=== PATIENT | female | born 1960 | race Caucasian/White ===

== ENCOUNTER 2022-03-03 14:12 | Inpatient (IN) | payer MEDICARE, MEDICAID ==
[~2022-03-03] VITALS: Ht 160 cm; Wt 61.7 kg
[2022-03-03 15:58] LABS: BASOPHILS % 0.1 % (0.0-2.0); HEMATOCRIT. 30.6 % (36.0-48.0); HEMOGLOBIN. 10.8 g/dL (12.0-16.0); LYMPHOCYTES % 8.6 % (20.0-50.0); MEAN CORPUSCULAR HEMOGLOBIN 31.9 pg (28.0-32.0); MEAN CORPUSCULAR VOLUME 90.7 fL (81.0-99.0); MONOCYTES % 6.1 % (2.0-8.0); NEUTROPHILS % 85.2 % (40.0-76.0); PLATELET 65 x1000/uL (130-400); RED BLOOD CELL COUNT 3.37 mill/uL (4.2-5.4); RED CELL DISTRIBUTION WIDTH 14.7 % (11.6-14.6)
[2022-03-03 16:00] LABS: CHLORIDE 96 mEq/L (98-107)
[2022-03-03 16:08] LABS: BETA HYDROXYBUTYRATE 0.1 mMol/L (0.0-0.3)
[2022-03-03] MEDS ORDERED: SODIUM CHLORIDE 0.9% 1,000 ML IV ONE ×2 (17:15)
[2022-03-03] MEDS ORDERED: POTASSIUM CHLORIDE 20MEQ TABLET SR PO ONE (17:15)
[2022-03-04] MEDS ORDERED: MAGNESIUM/ALUMINUM HYDROXIDE/SIMETHICONE 30ML UDC PO PRN (06:45)
[2022-03-04] MEDS ORDERED: HYDROCODONE/ACETAMINOPHEN 5/325MG TABLET PO PRN (06:45)
[2022-03-04] MEDS ORDERED: ONDANSETRON HCL 4MG/2ML INJ IV PRN (06:45)
[2022-03-04] MEDS ORDERED: GUAIFENESIN 200MG/10ML SUGAR FREE UDC PO PRN (06:45)
[2022-03-04] MEDS ORDERED: DOCUSATE SODIUM 100MG CAPSULE PO PRN (06:45)
[2022-03-04] MEDS ORDERED: LORAZEPAM 0.5MG TABLET PO PRN (06:45)
[2022-03-04] MEDS ORDERED: ACETAMINOPHEN 325MG TABLET PO PRN ×2 (06:45)
[2022-03-04] MEDS ORDERED: CLONIDINE 0.1MG TABLET PO PRN (06:45)
[2022-03-04] MEDS ORDERED: ACETAMINOPHEN 650MG SUPP PR PRN ×2 (06:45)
[2022-03-04] MEDS ORDERED: IPRATROPIUM/ALBUTEROL 0.5-3(2.5)MG/3ML NEB HHN PRN (06:45)
[2022-03-04] MEDS ORDERED: NALOXONE HCL 0.4MG/ML VIAL IV PRN (07:30)
[2022-03-04 08:35] LABS: BG BASE EXCESS -3.5 mmol/L (-2.0-2.0); BG CARBOXYHEMOGLOBIN 0.5 % (0.5-1.5); BG DEOXYHEMOGLOBIN 3.8 % (0.0-5.0); BG HCO3 ACT 18.2 mmol/L (22.0-26.0); BG METHEMOGLOBIN 0.3 % (0.0-1.5); BG OXYGEN SATURATION 96.2 % (92.0-98.5); BG OXYHEMOGLOBIN 95.4 % (94.0-97.0); BG PCO2 23.8 mmHg (35.0-45.0); BG PH 7.501 (7.350-7.450); BG PO2 76.4 mmHg (75.0-100.0); BG SAMPLE SITE RIGHT BRACHIAL; BG TOTAL HEMOGLOBIN 11.6 g/dL (12.0-18.0); BG VENT MODE ROOM AIR
[2022-03-04] MEDS ORDERED: DEXTROSE 50% WATER 50ML SYRINGE IV PRN (10:00)
[2022-03-04] MEDS: SODIUM CHLORIDE 0.9% 1,000 ML IV SCH (10:00)
[2022-03-04] MEDS ORDERED: ADENOSINE 3 MG/ML 2ML VIAL IV ONE (10:30)
[2022-03-04 11:23] LABS: CHLORIDE 106 mEq/L (98-107)
[2022-03-04 11:26] LABS: EOSINOPHILS % 0.1 % (0.0-5.0); HEMATOCRIT. 30.8 % (36.0-48.0); HEMOGLOBIN. 10.7 g/dL (12.0-16.0); LYMPHOCYTES % 9.2 % (20.0-50.0); MEAN CORPUSCULAR HEMOGLOBIN 31.6 pg (28.0-32.0); MEAN CORPUSCULAR VOLUME 90.9 fL (81.0-99.0); MEAN PLATELET VOLUME 9.6 fl (7.4-10.4); MONOCYTES % 9.7 % (2.0-8.0); PLATELET 57 x1000/uL (130-400); RED BLOOD CELL COUNT 3.39 mill/uL (4.2-5.4); RED CELL DISTRIBUTION WIDTH 14.6 % (11.6-14.6)
[2022-03-04 11:37] LABS: CREATINE KINASE 275 IU/L (26-192); HDL CHOLESTEROL 9 mg/dL (40-59); LDL CHOLESTEROL 28 mg/dL (5-100)
[2022-03-04] MEDS: BLOOD SUGAR DIAGNOSTIC STRIP TEST SCH ×4 (11:44→20:50)
[2022-03-04] MEDS: INSULIN LISPRO 100 UNITS/ML SUBCUT SCH ×3 (12:52→21:36)
[2022-03-04] MEDS ORDERED: DIGOXIN 500MCG/2ML AMP IV NR (13:30)
[2022-03-04] MEDS: DILTIAZEM 125MG/125ML PMX 100 ML IV SCH (13:59)
[2022-03-04] MEDS ORDERED: DIGOXIN 500MCG/2ML AMP IV PRN (14:45)
[2022-03-04 15:30] VITALS: BP 101/63
[2022-03-04 15:31] VITALS: BP 101/63
[2022-03-04 18:00] VITALS: BP 106/60
[2022-03-04 18:54] LABS: CLARITY URINE TURBID (CLEAR); COLOR URINE DARK YELLOW (YELLOW); KETONES URINE TRACE (NEGATIVE); LEUKOCYTE ESTERASE URINE 3+ (NEGATIVE); NITRITE URINE NEGATIVE (NEGATIVE); OCCULT BLOOD URINE 3+ (NEGATIVE); PROTEIN URINE 2+ (NEGATIVE); SPECIFIC GRAVITY URINE 1.018 (1.005-1.030); UROBILINOGEN URINE >8.0 E.U./dL (0.2-1.0)
[2022-03-04 20:00] VITALS: BP 103/58
[2022-03-04 22:00] VITALS: BP 94/57
[2022-03-05] VITALS (9 sets, daily range): BP systolic 92–128; BP diastolic 53–70
[2022-03-05] MEDS: DILTIAZEM 125MG/125ML PMX 100 ML IV SCH (03:33)
[2022-03-05] MEDS: SODIUM CHLORIDE 0.9% 1,000 ML IV SCH (05:23)
[2022-03-05 05:33] LABS: CHLORIDE 107 mEq/L (98-107)
[2022-03-05 06:15] LABS: BASOPHILS % 0.1 % (0.0-2.0); EOSINOPHILS % 0.1 % (0.0-5.0); HEMATOCRIT. 29.8 % (36.0-48.0); HEMOGLOBIN. 10.3 g/dL (12.0-16.0); LYMPHOCYTES % 7.6 % (20.0-50.0); MEAN CORPUSCULAR HEMOGLOBIN 31.8 pg (28.0-32.0); MEAN CORPUSCULAR VOLUME 91.6 fL (81.0-99.0); MEAN PLATELET VOLUME 9.3 fl (7.4-10.4); MONOCYTES % 10.5 % (2.0-8.0); NEUTROPHILS % 81.7 % (40.0-76.0); PLATELET 54 x1000/uL (130-400); RED BLOOD CELL COUNT 3.26 mill/uL (4.2-5.4); RED CELL DISTRIBUTION WIDTH 14.6 % (11.6-14.6)
[2022-03-05] MEDS: INSULIN LISPRO 100 UNITS/ML SUBCUT SCH ×4 (08:00→21:07)
[2022-03-05] MEDS: BLOOD SUGAR DIAGNOSTIC STRIP TEST SCH ×4 (08:15→21:06)
[2022-03-05] MEDS ORDERED: DILTIAZEM 125MG/125ML PMX 100 ML IV SCH (10:33)
[2022-03-05] MEDS: DILTIAZEM HCL 30MG TABLET PO SCH ×3 (10:53→18:00)
[2022-03-05] MEDS ORDERED: KCL 20MEQ/100ML PREMIX 100 ML IV NR ×2 (11:00→21:00)
[2022-03-05] MEDS: CEFTRIAXONE 1,000 MG in DEXTROSE 5% WATER 50 ML IV SCH (12:44)
[2022-03-05 18:41] LABS: CLARITY URINE CLOUDY (CLEAR); COLOR URINE DARK YELLOW (YELLOW); KETONES URINE TRACE (NEGATIVE); LEUKOCYTE ESTERASE URINE 2+ (NEGATIVE); NITRITE URINE POSITIVE (NEGATIVE); OCCULT BLOOD URINE 1+ (NEGATIVE); PH URINE 5.5 (4.5-8.0); PROTEIN URINE 2+ (NEGATIVE); SPECIFIC GRAVITY URINE 1.018 (1.005-1.030)
[2022-03-06] VITALS (11 sets, daily range): BP systolic 86–124; BP diastolic 53–86
[2022-03-06] MEDS: DILTIAZEM HCL 30MG TABLET PO SCH ×3 (12:00→14:59)
[2022-03-06 12:12] LABS: BASOPHILS % 0.2 % (0.0-2.0); EOSINOPHILS % 0.3 % (0.0-5.0); HEMATOCRIT. 29.5 % (36.0-48.0); HEMOGLOBIN. 10.3 g/dL (12.0-16.0); LYMPHOCYTES % 10.2 % (20.0-50.0); MEAN CORPUSCULAR HEMOGLOBIN 31.9 pg (28.0-32.0); MEAN CORPUSCULAR VOLUME 91.5 fL (81.0-99.0); MEAN PLATELET VOLUME 10.4 fl (7.4-10.4); MONOCYTES % 9.3 % (2.0-8.0); PLATELET 57 x1000/uL (130-400); RED BLOOD CELL COUNT 3.22 mill/uL (4.2-5.4); RED CELL DISTRIBUTION WIDTH 15.1 % (11.6-14.6)
[2022-03-06 12:24] LABS: CHLORIDE 108 mEq/L (98-107)
[2022-03-06] MEDS: BLOOD SUGAR DIAGNOSTIC STRIP TEST SCH ×4 (12:30→22:03)
[2022-03-06] MEDS: INSULIN LISPRO 100 UNITS/ML SUBCUT SCH ×4 (13:00→22:06)
[2022-03-06] MEDS: SODIUM CHLORIDE 0.9% 1,000 ML IV SCH ×2 (14:30→22:00)
[2022-03-06] MEDS: CEFTRIAXONE 1,000 MG in DEXTROSE 5% WATER 50 ML IV SCH (14:50)
[2022-03-06] MEDS ORDERED: DILTIAZEM HCL 30MG TABLET PO SCH (22:00)
== END 2022-03-06 23:17 | disposition home or self-care (01) | DRG 73 ==
LOC: ER 14:12 → MICUSO 03-04 04:24 → 5EST 03-04 16:38
PROVIDERS: ADMIT Family Medicine Adult Medicine; ATTEND Family Medicine Adult Medicine
DX: G90.8 Other disorders of autonomic nervous system (principal); E43 Unspecified severe protein-calorie malnutrition; I47.1 Supraventricular tachycardia; E87.1 Hypo-osmolality and hyponatremia; N39.0 Urinary tract infection, site not specified; D64.9 Anemia, unspecified; E87.6 Hypokalemia; I10 Essential (primary) hypertension; D69.6 Thrombocytopenia, unspecified; E11.65 Type 2 diabetes mellitus with hyperglycemia; R26.9 Unspecified abnormalities of gait and mobility; R53.81 Other malaise; Z79.899 Other long term (current) drug therapy
CPT/HCPCS: 36415; 36600; 71045; 80048; 80053; 80061; 81003; 82010; 82375; 82550; 82805; 82962; 83605; 83735; 84132; 84443; 84484; 85025; 87077; 87186; 93005; 93306; 97162; 97166; 97530; 97535; 99285; J0153; J0696; J1160; J1815; J3480; J3490; J7030; J7060

== ENCOUNTER 2022-05-04 17:32 | Inpatient (IN) | payer MEDICARE, MEDICAID ==
[~2022-05-04] VITALS: Ht 165.1 cm; Wt 63.5 kg
[~2022-05-04 17:32] MED LIST: ASCO500T20 PO; DILT120C88 MT; DOCU250C14 MT; FERR-63 PO
[2022-05-04 21:09] LABS: BASOPHILS % 0.1 % (0.0-2.0); EOSINOPHILS % 0.8 % (0.0-5.0); HEMATOCRIT. 36.9 % (36.0-48.0); HEMOGLOBIN. 12.7 g/dL (12.0-16.0); LYMPHOCYTES % 10.9 % (20.0-50.0); MEAN CORPUSCULAR HEMOGLOBIN 32.3 pg (28.0-32.0); MEAN CORPUSCULAR VOLUME 93.9 fL (81.0-99.0); MEAN PLATELET VOLUME 8.9 fl (7.4-10.4); NEUTROPHILS % 83.2 % (40.0-76.0); PLATELET 78 x1000/uL (130-400); RED BLOOD CELL COUNT 3.93 mill/uL (4.2-5.4); RED CELL DISTRIBUTION WIDTH 15.6 % (11.6-14.6)
[2022-05-04 21:18] LABS: INR 1.3; PROTHROMBIN TIME 13.4 sec (9.6-11.0)
[2022-05-04 21:20] LABS: CHLORIDE 98 mEq/L (98-107)
[2022-05-05] MEDS ORDERED: SODIUM CHLORIDE 0.9% 1,000 ML IV ONE (01:00)
[2022-05-05] MEDS ORDERED: MAGNESIUM/ALUMINUM HYDROXIDE/SIMETHICONE 30ML UDC PO PRN (01:30)
[2022-05-05] MEDS ORDERED: ONDANSETRON HCL 4MG/2ML INJ IV PRN (01:30)
[2022-05-05] MEDS ORDERED: GUAIFENESIN 200MG/10ML SUGAR FREE UDC PO PRN (01:30)
[2022-05-05] MEDS ORDERED: ACETAMINOPHEN 325MG TABLET PO PRN ×2 (01:30)
[2022-05-05] MEDS ORDERED: IPRATROPIUM/ALBUTEROL 0.5-3(2.5)MG/3ML NEB NEB PRN (01:30)
[2022-05-05] MEDS ORDERED: CLONIDINE 0.1MG TABLET PO PRN (01:30)
[2022-05-05 01:43] LABS: CLARITY URINE TURBID (CLEAR); COLOR URINE ORANGE (YELLOW); KETONES URINE TRACE (NEGATIVE); LEUKOCYTE ESTERASE URINE 3+ (NEGATIVE); NITRITE URINE POSITIVE (NEGATIVE); OCCULT BLOOD URINE 3+ (NEGATIVE); PROTEIN URINE 3+ (NEGATIVE); SPECIFIC GRAVITY URINE 1.018 (1.005-1.030); UROBILINOGEN URINE 0.2 E.U./dL (0.2-1.0)
[2022-05-05] MEDS: SODIUM CHLORIDE 0.9% 1,000 ML IV SCH ×3 (02:05→17:30)
[2022-05-05] MEDS ORDERED: CEFTRIAXONE 1 G PREMIX 50 ML IV ONE (03:00)
[2022-05-05] MEDS ORDERED: CEFTRIAXONE 1 G PREMIX 50 ML IV NR (04:00)
[2022-05-05 08:00] VITALS: BP 113/65
[2022-05-05] MEDS ORDERED: ENOXAPARIN 30MG/0.3ML SYR SUBCUT SCH (09:00)
[2022-05-05 11:46] LABS: EOSINOPHILS % 0.8 % (0.0-5.0); HEMATOCRIT. 27.9 % (36.0-48.0); HEMOGLOBIN. 9.8 g/dL (12.0-16.0); LYMPHOCYTES % 10.1 % (20.0-50.0); MEAN CORPUSCULAR HEMOGLOBIN 32.9 pg (28.0-32.0); MEAN CORPUSCULAR VOLUME 93.4 fL (81.0-99.0); MEAN PLATELET VOLUME 8.5 fl (7.4-10.4); MONOCYTES % 7.9 % (2.0-8.0); NEUTROPHILS % 81.2 % (40.0-76.0); PLATELET 53 x1000/uL (130-400); RED BLOOD CELL COUNT 2.98 mill/uL (4.2-5.4); RED CELL DISTRIBUTION WIDTH 15.7 % (11.6-14.6)
[2022-05-05 12:00] VITALS: BP 93/50
[2022-05-05 12:24] LABS: PHOSPHORUS 2.1 mg/dL (2.5-4.9)
[2022-05-05] MEDS ORDERED: NALOXONE HCL 0.4MG/ML VIAL IV PRN (13:15)
[2022-05-05] MEDS ORDERED: CEFTRIAXONE 1,000 MG in DEXTROSE 5% WATER 50 ML IV SCH (14:30)
[2022-05-05 16:00] VITALS: BP 125/71
[2022-05-05] MEDS: MIDODRINE HCL 5MG TABLET PO SCH (18:14)
[2022-05-05] MEDS ORDERED: POTASSIUM-SODIUM PHOSPHATE POWDER PACKET PO NR (18:15)
[2022-05-05 18:27] LABS: TOTAL IRON BINDING CAPACITY 168 ug/dL (250-450)
[2022-05-05 19:01] LABS: VITAMIN B12 SERUM 424 pg/mL (211-911)
[2022-05-05] MEDS: CEFEPIME 2,000 MG in DEXT 5% WATER 100 ML IV SCH (19:01)
[2022-05-05 19:54] VITALS: BP 125/71
[2022-05-05 20:00] VITALS: BP 121/62
[2022-05-05] MEDS ORDERED: MAGNESIUM 2 G PREMIX 50 ML IV NR (20:00)
[2022-05-05 20:57] LABS: HEMATOCRIT 30.9 % (36.0-48.0); HEMOGLOBIN 10.6 g/dL (12.0-16.0)
[2022-05-05] MEDS: METRONIDAZOLE 500 MG PREMIX 100 ML IV SCH (21:20)
[2022-05-05] MEDS: HYDROCODONE/ACETAMINOPHEN 5/325MG TABLET PO PRN (22:21)
[2022-05-06] VITALS: BP 95/47
[2022-05-06] MEDS: SODIUM CHLORIDE 0.9% 1,000 ML IV SCH ×3 (02:22→17:18)
[2022-05-06 04:00] VITALS: BP 107/55
[2022-05-06] MEDS: METRONIDAZOLE 500 MG PREMIX 100 ML IV SCH ×3 (04:21→20:09)
[2022-05-06] MEDS: CEFEPIME 2,000 MG in DEXT 5% WATER 100 ML IV SCH ×2 (05:44→17:12)
[2022-05-06] MEDS: MIDODRINE HCL 5MG TABLET PO SCH ×3 (05:45→21:58)
[2022-05-06 08:00] VITALS: BP 129/71
[2022-05-06] MEDS: PANTOPRAZOLE SODIUM 40 MG/VIAL IV SCH (08:32)
[2022-05-06] MEDS: LACTOBACILLUS GG CAPSULE PO SCH (08:32)
[2022-05-06 09:51] LABS: INR 1.1; PROTHROMBIN TIME 11.4 sec (9.6-11.0)
[2022-05-06 09:53] LABS: BASOPHILS % 0.1 % (0.0-2.0); EOSINOPHILS % 0.4 % (0.0-5.0); HEMATOCRIT. 29.1 % (36.0-48.0); HEMOGLOBIN. 10.1 g/dL (12.0-16.0); LYMPHOCYTES % 11.8 % (20.0-50.0); MEAN CORPUSCULAR HEMOGLOBIN 32.5 pg (28.0-32.0); MEAN CORPUSCULAR VOLUME 93.5 fL (81.0-99.0); MEAN PLATELET VOLUME 8.9 fl (7.4-10.4); MONOCYTES % 10.7 % (2.0-8.0); PLATELET 52 x1000/uL (130-400); RED BLOOD CELL COUNT 3.11 mill/uL (4.2-5.4); RED CELL DISTRIBUTION WIDTH 15.6 % (11.6-14.6)
[2022-05-06 10:10] LABS: CHLORIDE 105 mEq/L (98-107)
[2022-05-06 10:32] LABS: AMYLASE 102 IU/L (25-115); T4 FREE 1.31 ng/dL (0.76-1.46); TOTAL IRON BINDING CAPACITY 220 ug/dL (250-450)
[2022-05-06] MEDS ORDERED: POTASSIUM CHLORIDE 20MEQ TABLET SR PO SCH (11:30)
[2022-05-06 12:00] VITALS: BP 107/42
[2022-05-06] MEDS: FERROUS SULFATE 325MG TABLET PO SCH ×2 (14:30→17:11)
[2022-05-06] MEDS: ASCORBIC ACID 500 MG TABLET PO SCH ×2 (14:30→17:12)
[2022-05-06 16:00] VITALS: BP 120/57
[2022-05-06 20:00] VITALS: BP 108/60
[2022-05-06] MEDS: HYDROCODONE/ACETAMINOPHEN 5/325MG TABLET PO PRN (20:11)
[2022-05-07] VITALS (7 sets, daily range): BP systolic 101–142; BP diastolic 60–83
[2022-05-07] MEDS: SODIUM CHLORIDE 0.9% 1,000 ML IV SCH ×2 (01:19→09:30)
[2022-05-07] MEDS: METRONIDAZOLE 500 MG PREMIX 100 ML IV SCH ×2 (04:08→11:58)
[2022-05-07] MEDS: CEFEPIME 2,000 MG in DEXT 5% WATER 100 ML IV SCH (06:03)
[2022-05-07] MEDS: MIDODRINE HCL 5MG TABLET PO SCH ×3 (06:03→21:25)
[2022-05-07] MEDS: FERROUS SULFATE 325MG TABLET PO SCH (08:39)
[2022-05-07] MEDS: PANTOPRAZOLE SODIUM 40 MG/VIAL IV SCH (08:40)
[2022-05-07] MEDS: LACTOBACILLUS GG CAPSULE PO SCH (08:40)
[2022-05-07] MEDS: ASCORBIC ACID 500 MG TABLET PO SCH (08:40)
[2022-05-07 09:47] LABS: CHLORIDE 109 mEq/L (98-107)
[2022-05-07 09:51] LABS: BASOPHILS % 0.2 % (0.0-2.0); EOSINOPHILS % 0.6 % (0.0-5.0); HEMATOCRIT. 30.7 % (36.0-48.0); HEMOGLOBIN. 10.5 g/dL (12.0-16.0); LYMPHOCYTES % 13.9 % (20.0-50.0); MEAN CORPUSCULAR VOLUME 93.4 fL (81.0-99.0); MEAN PLATELET VOLUME 9.3 fl (7.4-10.4); MONOCYTES % 11.8 % (2.0-8.0); NEUTROPHILS % 73.5 % (40.0-76.0); PLATELET 55 x1000/uL (130-400); RED BLOOD CELL COUNT 3.29 mill/uL (4.2-5.4); RED CELL DISTRIBUTION WIDTH 15.7 % (11.6-14.6)
[2022-05-07 09:58] LABS: AMYLASE 119 IU/L (25-115); PHOSPHORUS 1.7 mg/dL (2.5-4.9)
[2022-05-07] MEDS ORDERED: POTASSIUM-SODIUM PHOSPHATE POWDER PACKET PO NR (11:00)
[2022-05-07] MEDS ORDERED: KCL 20MEQ/100ML PREMIX 100 ML IV NR (12:00)
[2022-05-07] MEDS ORDERED: MAGNESIUM 2 G PREMIX 50 ML IV NR (13:00)
[2022-05-08] MEDS: MEROPENEM 1,000 MG in SODIUM CHLORIDE 0.9% 100 ML IV SCH ×3 (00:37→17:41)
[2022-05-08] MEDS: SODIUM CHLORIDE 0.9% 1,000 ML IV SCH ×3 (00:39→17:42)
[2022-05-08 04:00] VITALS: BP 122/61
[2022-05-08] MEDS: MIDODRINE HCL 5MG TABLET PO SCH ×2 (05:03→15:22)
[2022-05-08 08:00] VITALS: BP 129/52
[2022-05-08] MEDS: FERROUS SULFATE 325MG TABLET PO SCH ×2 (08:45→17:41)
[2022-05-08] MEDS: ASCORBIC ACID 500 MG TABLET PO SCH ×2 (08:46→17:41)
[2022-05-08] MEDS: LACTOBACILLUS GG CAPSULE PO SCH (08:46)
[2022-05-08] MEDS: PANTOPRAZOLE SODIUM 40 MG/VIAL IV SCH (09:39)
[2022-05-08 12:00] VITALS: BP 110/61
[2022-05-08 12:21] LABS: BASOPHILS % 0.3 % (0.0-2.0); EOSINOPHILS % 0.4 % (0.0-5.0); HEMATOCRIT. 28.1 % (36.0-48.0); HEMOGLOBIN. 9.7 g/dL (12.0-16.0); MEAN CORPUSCULAR HEMOGLOBIN 32.2 pg (28.0-32.0); MEAN CORPUSCULAR VOLUME 93.4 fL (81.0-99.0); MONOCYTES % 10.5 % (2.0-8.0); NEUTROPHILS % 69.8 % (40.0-76.0); PLATELET 59 x1000/uL (130-400); RED BLOOD CELL COUNT 3.01 mill/uL (4.2-5.4); RED CELL DISTRIBUTION WIDTH 15.5 % (11.6-14.6)
[2022-05-08] MEDS ORDERED: ERTA1VIA3 IJ (12:52)
[2022-05-08] MEDS ORDERED: LOPE2TAB26 PO (12:53)
[2022-05-08 13:13] LABS: CHLORIDE 106 mEq/L (98-107)
[2022-05-08 13:22] LABS: PHOSPHORUS 1.7 mg/dL (2.5-4.9)
[2022-05-08 16:00] VITALS: BP 116/53
[2022-05-08 17:23] VITALS: BP 116/53
[2022-05-10 16:10] LABS: FERRITIN 518 ng/mL (10-291)
== END 2022-05-08 19:53 | disposition home health service (06) | DRG 871 ==
LOC: ER 17:48 → 6EST 05-05 00:57 → EDBEDREQTM 05-05 01:04 → EDBEDREQ 05-05 01:04 → SUPCPDRO 05-05 01:10
PROVIDERS: ADMIT Internal Medicine; ATTEND Internal Medicine
PROC: 02HV33Z Insertion of Infusion Device into Superior Vena Cava, Percutaneous Approach (ICD-10-PCS; principal; 2022-05-08)
PROC: B548ZZA Ultrasonography of Superior Vena Cava, Guidance (ICD-10-PCS; 2022-05-08)
PROC: B518ZZA Fluoroscopy of Superior Vena Cava, Guidance (ICD-10-PCS; 2022-05-08)
DX: A41.51 Sepsis due to Escherichia coli [E. coli] (principal); K85.90 Acute pancreatitis without necrosis or infection, unspecified; R65.21 Severe sepsis with septic shock; N17.0 Acute kidney failure with tubular necrosis; N12 Tubulo-interstitial nephritis, not specified as acute or chronic; E46 Unspecified protein-calorie malnutrition; E87.1 Hypo-osmolality and hyponatremia; Z16.12 Extended spectrum beta lactamase (ESBL) resistance; K76.6 Portal hypertension; A04.9 Bacterial intestinal infection, unspecified; E86.0 Dehydration; E11.65 Type 2 diabetes mellitus with hyperglycemia; D64.9 Anemia, unspecified; E83.39 Other disorders of phosphorus metabolism; D69.6 Thrombocytopenia, unspecified; K74.60 Unspecified cirrhosis of liver; R16.1 Splenomegaly, not elsewhere classified; A08.4 Viral intestinal infection, unspecified; E83.42 Hypomagnesemia; Z20.822 Contact with and (suspected) exposure to COVID-19; E87.6 Hypokalemia; K76.0 Fatty (change of) liver, not elsewhere classified; I10 Essential (primary) hypertension; K82.8 Other specified diseases of gallbladder; N20.0 Calculus of kidney; N28.89 Other specified disorders of kidney and ureter; Z68.23 Body mass index [BMI] 23.0-23.9, adult; Z79.899 Other long term (current) drug therapy
CPT/HCPCS: 36415; 36573; 71045; 74176; 76700; 78227; 80048; 80053; 80076; 81003; 82150; 82607; 82728; 82746; 83036; 83540; 83550; 83605; 83735; 84100; 84145; 84439; 84443; 85014; 85018; 85025; 85044; 87077; 87186; 87426; 93005; 99285; A9537; C1725; C1893; C9113; J0692; J0696; J2185; J2405; J3475; J3480; J3490; J7030; J7050; J7060

== ENCOUNTER 2022-05-17 13:20 | Emergency (ER) | payer MEDICARE, MEDICAID ==
[~2022-05-17] VITALS: Ht 162.6 cm; Wt 75.0 kg
[~2022-05-17 13:20] MED LIST changes: +LOPE2TAB26 PO
[2022-05-17 13:31] VITALS: BP 118/46
[2022-05-17] MEDS ORDERED: MEROPENEM 1,000 MG in SODIUM CHLORIDE 0.9% 100 ML IV SCH (14:45)
== END 2022-05-17 16:48 | disposition home or self-care (01) ==
LOC: ER 13:42
DX: Z13.9 Encounter for screening, unspecified (principal); I10 Essential (primary) hypertension; E11.9 Type 2 diabetes mellitus without complications
CPT/HCPCS: 96365; 99284; J2185; J7050

== ENCOUNTER 2023-05-25 14:33 | Emergency (ER) | payer MEDICARE, MEDICAID ==
[~2023-05-25] VITALS: Ht 160 cm; Wt 70.0 kg
[2023-05-25 14:47] VITALS: O2SAT 98
[2023-05-25 15:31] LABS: HEMOGLOBIN. 12.3 g/dL (12.0-16.0); LYMPHOCYTES % 13.1 % (20.0-50.0); MEAN CORPUSCULAR HEMOGLOBIN 31.1 pg (28.0-32.0); MEAN CORPUSCULAR HGB CONC 34.1 g/dL (31.0-37.0); MEAN CORPUSCULAR VOLUME 91.1 fL (81.0-99.0); MEAN PLATELET VOLUME 8.3 fl (7.4-10.4); MONOCYTES % 7.1 % (2.0-8.0); NEUTROPHILS % 79.8 % (40.0-76.0); PLATELET 122 x1000/uL (130-400); RED BLOOD CELL COUNT 3.95 mill/uL (4.2-5.4); RED CELL DISTRIBUTION WIDTH 16.8 % (11.6-14.6); WHITE BLOOD COUNT 11.9 x1000/uL (4.5-11.0)
[2023-05-25 15:36] LABS: CHLORIDE 96 mEq/L (98-107); INDEX HEMOLYSI 1 (1-3); INDEX ICTERIC 1 (1-4); INDEX LIPEMIC 1 (1-3); POTASSIUM 3.7 mEq/L (3.5-5.1); SODIUM 130 mEq/L (136-145)
[2023-05-25 15:45] LABS: ALANINE AMINOTRANSFERASE 37 IU/L (13-61); ALBUMIN 3.2 g/dL (3.4-5.0); ASPARTATE AMINOTRANSFERASE 25 IU/L (15-37); BILIRUBIN TOTAL 2.2 mg/dL (0.1-1.0); CALCIUM 8.3 mg/dL (8.5-10.1); CARBON DIOXIDE 26 mEq/L (21-32); CREATININE 0.9 mg/dL (0.6-1.3); PROTEIN TOTAL 7.6 g/dL (6.0-8.3); UREA NITROGEN BLOOD 15 mg/dL (7-21)
[2023-05-25 16:16] LABS: GLUCOSE 433 mg/dL (70-105)
[2023-05-25] MEDS ORDERED: METFORMIN HCL 500MG TABLET PO ONE (21:30)
[2023-05-25] MEDS ORDERED: INSULIN REGULAR (HUMULIN R) 300UNITS/3ML VIAL SUBCUT ONE (21:30)
[2023-05-25] MEDS ORDERED: SODIUM CHLORIDE 0.9% 1,000 ML IV ONE (21:30)
[2023-05-25] MEDS ORDERED: METF-414 MT (21:55)
[2023-05-25] MEDS ORDERED: METFORMIN HCL 500MG TABLET PO NR (21:59)
[2023-05-25 23:00] VITALS: BP 117/69; PULSE 90; RESP 21; TEMP 98
== END 2023-05-25 23:00 | disposition home or self-care (01) ==
LOC: ER 14:33
DX: E11.65 Type 2 diabetes mellitus with hyperglycemia (principal); I11.9 Hypertensive heart disease without heart failure
CPT/HCPCS: 99283; 96360; 80053; 85025; 36415; 82962; J7030; J1815